=== PATIENT | female | born 1965 ===

== ENCOUNTER 2021-04-06 16:08 | Emergency (ER) | payer SELFPAY ==
[2021-04-06] MEDS ORDERED: ONDANSETRON 4 MG ODT TAB PO ONE (18:27)
--- NOTE | 2021-04-06 18:48 | Emergency Department Report ---
ED General Adult HPI - General Chief complaint: Back Pain/Injury Stated complaint: GUSTAFSON/VOMITING/ABD PAIN Time Seen by Provider: 04/06/21 18:17 Source: patient Mode of arrival: Ambulatory Limitations: No Limitations - History of Present Illness Initial comments: 56-year-old -[place]ian female with a past medical history of hypertension and asthma presents to the emergency room complaining of back pain and right arm pain x1 week. Patient also admits to nausea vomiting and a migraine headache. Patient reports that she has been having diarrhea as well. Patient endorsed to me that she recently moved here from [facility] and is now homeless as her living situation is denied panned out. Patient currently does not have a primary care provider here. Patient denies any hematuria but admits to increased urination increased frequency pelvic pressure. Patient states she has been taking Aleve for pain management. She is not sure what blood pressure medication she is takes. Onset/Timin -: week(s) Location: back, abdomen, upper extremity Radiation: back, distal Severity scale (0 -10): 9 Quality: stabbing, sharp Consistency: constant Improves with: none Worsens with: movement Associated Symptoms: headaches, nausea/vomiting. denies: cough, diaphoresis, fever/chills Treatments Prior to Arrival: none - Related Data Previous Rx's Medication Instructions Recorded Last Taken Type Naproxen 500 mg PO BID PRN 10 Days #20 04/06/21 Unknown Rx tablet Nitrofurantoin [place]/M-Cryst 100 mg PO Q12HR 10 Days #20 capsule 04/06/21 Unknown Rx [Macrobid CAP] amLODIPine 5 mg PO DAILY 30 Days #30 tab 04/06/21 Unknown Rx Allergies Allergy/AdvReac Type Severity Reaction Status Date / Time Penicillins Allergy Swelling Verified 04/06/21 16:14 ED Review of Systems ROS: Stated complaint: GUSTAFSON/VOMITING/ABD PAIN Other details as noted in HPI Comment: All other systems reviewed and negative ED Past Medical Hx - Past Medical History Previous Medical History?: Yes Hx Hypertension: Yes Hx Asthma: Yes - Surgical History Past Surgical History?: Yes Additional Surgical History: sinus surgery - Social History Smoking Status: Never Smoker Substance Use Type: None - Medications Home Medications: Home Medications Medication Instructions Recorded Confirmed Last Taken Type Naproxen 500 mg PO BID PRN 10 Days #20 04/06/21 Unknown Rx tablet Nitrofurantoin [place]/M-Cryst 100 mg PO Q12HR 10 Days #20 capsule 04/06/21 Unknown Rx [Macrobid CAP] amLODIPine 5 mg PO DAILY 30 Days #30 tab 04/06/21 Unknown Rx ED Physical Exam - General Limitations: No Limitations General appearance: alert, other (Tearful) - Head Head exam: Present: atraumatic, normocephalic - Eye Eye exam: Present: normal appearance - ENT ENT exam: Present: mucous membranes moist - Neck Neck exam: Present: normal inspection, full ROM - Respiratory Respiratory exam: Present: normal lung sounds bilaterally. Absent: chest wall tenderness - Cardiovascular Cardiovascular Exam: Present: regular rate - Neurological Exam Neurological exam: Present: alert, oriented X3, normal gait - Psychiatric Psychiatric exam: Present: normal affect, normal mood - Skin Skin exam: Present: warm, dry, intact, normal color. Absent: rash ED Course Vital Signs 04/06/21 16:13 Temperature 99.1 F Pulse Rate 92 H Respiratory 13 Rate Blood Pressure 175/110 O2 Sat by Pulse 100 Oximetry ED Medical Decision Making - Lab Data Result diagrams: 04/06/21 18:38 04/06/21 18:38 Laboratory Tests 04/06/21 04/06/21 04/06/21 18:38 18:38 18:51 WBC 7.8 RBC 5.58 H Hgb 17.6 H Hct 50.3 H MCV 90 MCH 32 MCHC 35 H RDW 13.3 Plt Count 279 Lymph % (Auto) 43.5 H [place] % (Auto) 5.4 Eos % (Auto) 0.6 Baso % (Auto) 0.3 Lymph # (Auto) 3.4 [place] # (Auto) 0.4 Eos # (Auto) 0.0 Baso # (Auto) 0.0 Seg Neutrophils % 50.2 Seg Neutrophils # 3.9 Sodium 140 Potassium 4.5 Chloride 98.3 Carbon Dioxide 27 Anion Gap 19 BUN 9 Creatinine 0.7 Estimated GFR > 60 BUN/Creatinine Ratio 13 Glucose 133 H Calcium 10.9 H Total Bilirubin 0.70 AST 22 ALT 25 Alkaline Phosphatase 74 Total Protein 8.6 H Albumin 5.2 H Albumin/Globulin Ratio 1.5 Urine Color Yellow Urine Turbidity Cloudy Urine pH 6.0 Ur Specific [place] 1.008 Urine Protein 30 mg/dl Urine Glucose (UA) Neg Urine Ketones Tr Urine Blood Lg Urine Nitrite Neg Urine Bilirubin Neg Urine Urobilinogen < 2.0 Ur Leukocyte Esterase Lg Urine WBC (Auto) 26.0 H Urine RBC (Auto) 37.0 U Epithel Cells (Auto) 25.0 H Urine Bacteria (Auto) 2+ Urine Mucus Few - Medical Decision Making 56-year-old -[place] female with a past medical history of hypertension and asthma presents to the emergency room complaining of back pain and right arm pain x1 week. Patient also admits to nausea vomiting and a migraine headache. Patient reports that she has been having diarrhea as well. Patient endorsed to me that she recently moved here from [facility] and is now homeless as her living situation is denied panned out. Patient currently does not have a primary care provider here. Patient denies any hematuria but admits to increased urination increased frequency pelvic pressure. Patient states she has been taking Aleve for pain management. She is not sure what blood pressure medication she is takes. CBC CMP urinalysis lipase has been ordered. Critical care attestation.: If time is entered above; I have spent that time in minutes in the direct care of this critically ill patient, excluding procedure time. ED Disposition Clinical Impression: UTI (urinary tract infection) Qualifiers: Hematuria presence: without hematuria HTN (hypertension) Qualifiers: Hypertension type: unspecified Qualified Code(s): I10 - Essential (primary) hypertension Disposition: TO HOME OR SELFCARE Is pt being admited?: No Does the pt Need Aspirin: No Condition: Stable Instructions: Urinary Tract Infection, Adult, [id number], Hypertension (ED) Additional Instructions: Urine shows that you have a urinary tract infection this is because of your back pain and abdominal pain and pelvic pain. Increase your fluids. Take your pain medication. Follow-up with a primary care provider. Take your blood pressure medicine. Prescriptions: amLODIPine 5 mg PO DAILY 30 Days #30 tab Nitrofurantoin [place]/M-Cryst [Macrobid CAP] 100 mg PO Q12HR 10 Days #20 capsule Naproxen 500 mg PO BID PRN 10 Days #20 tablet PRN Reason: Pain , Severe (7-10) Referrals: PRIMARY CARE, [Primary Care Provider] - 3-5 Days [facility] [Provider Group] - 3-5 Days
[2021-04-06 19:16] LABS: Basophils % (Auto) 0.3 % (0.0-1.8); Eosinophils % (Auto) 0.6 % (0.0-4.3); Hematocrit 50.3 % (30.3-42.9); Hemoglobin 17.6 gm/dl (10.1-14.3); Lymphocytes # (Auto) 3.4 K/mm3 (1.2-5.4); Lymphocytes % (Auto) 43.5 % (13.4-35.0); Mean Corpuscular HGB Conc 35 % (30-34); Mean Corpuscular Volume 90 fl (79-97); Monocytes # (Auto) 0.4 K/mm3 (0.0-0.8); Monocytes % (Auto) 5.4 % (0.0-7.3); Platelet Count 279 K/mm3 (140-440); Red Blood Count 5.58 M/mm3 (3.65-5.03); Red Cell Distribution Width 13.3 % (13.2-15.2)
[2021-04-06 19:25] LABS: Bacteria,Urine 2+ /HPF (Negative); Bilirubin,Urine NEG (Negative); Blood,Urine LG (Negative); Color,Urine Yellow (Yellow); Mucus,Urine FEW /HPF; Urobilinogen,Urine < 2.0 mg/dL (<2.0)
[2021-04-06 19:34] LABS: Alanine Aminotransferase 25 units/L (7-56); Albumin 5.2 g/dL (3.9-5); Blood Urea Nitrogen 9 mg/dL (7-17); Calcium 10.9 mg/dL (8.4-10.2); Hemolysis Index 12
[2021-04-06 19:35] LABS: BUN/Creatinine Ratio 13
[2021-04-06] MEDS ORDERED: cloNIDine 0.1 MG TAB PO ONE (20:35)
[2021-04-06 23:20] VITALS: BP 184/104
--- NOTE | 2021-04-09 14:25 | Electrocardiograph Report ---
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
== END 2021-04-06 21:05 | disposition home or self-care (01) ==
LOC: ED 16:08
DX: N39.0 Urinary tract infection, site not specified (principal); I10 Essential (primary) hypertension; M79.601 Pain in right arm; R11.2 Nausea with vomiting, unspecified; J45.909 Unspecified asthma, uncomplicated; Z98.890 Other specified postprocedural states; Z79.899 Other long term (current) drug therapy; Z88.0 Allergy status to penicillin
CPT/HCPCS: 36415; 80053; 81001; 85025; 87086; 93005; 99283; Q0162

== ENCOUNTER 2021-04-07 10:11 | Emergency (ER) | payer MEDICAID ==
--- NOTE | 2021-04-07 10:50 | Emergency Department Report ---
HPI - General Time Seen by Provider: 04/07/21 10:12 - HPI HPI: This is a 56-year-old -J[place] female who presents to the emergency department via EMS with complaint of nausea, vomiting, diarrhea, and body aches worse on the right side, over the past week. She also complains of some intermittent shortness of breath and mixed dry and productive cough. The patient was seen here last night for the nausea/vomiting and some body aches. At the time the patient was found to have some hypertension and labs showed a urinary tract infection. The patient was discharged home with amlodipine, Macrobid and NSAIDs. The patient recently moved here from [place] to take care of "my blind sister." Some triage information says that the patient is homeless but the patient says that she is staying with family. Apparently the patient says that her symptoms worsened overnight and that this morning she passed out. At the time of my examination she is awake, alert, oriented, AAO x3. She presents with elevated blood pressure. Initially, during triage, the patient was witnessed to have a oxygen saturation of 85% on room air and was placed on 2 L via nasal cannula. She denies any tobacco, alcohol or illicit drug use. She just has a past medical history of asthma and hypertension, as well as a history of anxiety. ED Past Medical Hx - Past Medical History Previous Medical History?: Yes Hx Hypertension: Yes Hx Asthma: Yes - Surgical History Additional Surgical History: sinus surgery - Social History Smoking Status: Never Smoker Substance Use Type: None - Medications Home Medications: Home Medications Medication Instructions Recorded Confirmed Last Taken Type Naproxen 500 mg PO BID PRN 10 Days #20 04/06/21 Unknown Rx tablet Nitrofurantoin [place]/M-Cryst 100 mg PO Q12HR 10 Days #20 capsule 04/06/21 Unknown Rx [Macrobid CAP] amLODIPine 5 mg PO DAILY 30 Days #30 tab 04/06/21 Unknown Rx Ondansetron [Zofran Odt] 4 mg PO Q8HR PRN #15 tab.rapdis 04/07/21 Unknown Rx ED Review of Systems ROS: Stated complaint: NAUSEA/VOMITING Other details as noted in HPI Comment: All other systems reviewed and negative Constitutional: denies: chills, fever Eyes: denies: eye pain, vision change ENT: denies: ear pain, throat pain Respiratory: cough, shortness of breath Cardiovascular: denies: chest pain, palpitations Gastrointestinal: nausea, vomiting, diarrhea. denies: abdominal pain Genitourinary: denies: urgency, dysuria Musculoskeletal: back pain, myalgia. denies: joint swelling Skin: denies: rash, lesions Neurological: denies: headache, numbness, paresthesias Physical Exam - Physical Exam Vital Signs: Vital Signs 04/07/21 10:15 Temperature 98.7 F Pulse Rate 88 Respiratory 16 Rate Blood Pressure 177/89 [Right] O2 Sat by Pulse 85 Oximetry Physical Exam: GENERAL: The patient is well-developed well-nourished. HENT: Normocephalic. Atraumatic. Patient has moist mucous membranes. EYES: Extraocular motions are intact. NECK: Supple. Trachea is midline. CHEST/LUNGS: Clear to auscultation. There is no respiratory distress noted. HEART/CARDIOVASCULAR: Regular. There is mild tachycardia. There is no murmur. ABDOMEN: Abdomen is soft. Mild generalized abdominal tenderness to palpation. No guarding. Patient has normal bowel sounds. There is no abdominal distention. SKIN: Skin is warm and dry. NEURO: The patient is awake, alert, and oriented. The patient is cooperative. The patient has no focal neurologic deficits. Normal speech. MUSCULOSKELETAL: There is no tenderness or deformity. There is no limitation range of motion. ED Course Vital Signs 04/07/21 10:15 Temperature 98.7 F Pulse Rate 88 Respiratory 16 Rate Blood Pressure 177/89 [Right] O2 Sat by Pulse 85 Oximetry - ABG Interpretation Ph: 7.485 PCO2: 30 PO2: 81 Bicarbonate: 22 ED Medical Decision Making - Lab Data Result diagrams: 04/07/21 10:53 04/07/21 10:53 Lab Results 04/07/21 04/07/21 04/07/21 Range/Units 10:53 10:53 10:53 WBC 10.6 (4.5-11.0) K/mm3 RBC 5.33 H (3.65-5.03) M/mm3 Hgb 17.3 H (10.1-14.3) gm/dl Hct 47.7 H (30.3-42.9) % MCV 90 (79-97) fl MCH 32 (28-32) pg MCHC 36 H (30-34) % RDW 13.1 L (13.2-15.2) % Plt Count 219 (140-440) K/mm3 Lymph % (Auto) 16.7 (13.4-35.0) % [place] % (Auto) 5.4 (0.0-7.3) % Eos % (Auto) 0.4 (0.0-4.3) % Baso % (Auto) 0.3 (0.0-1.8) % Lymph # (Auto) 1.8 (1.2-5.4) K/mm3 [place] # (Auto) 0.6 (0.0-0.8) K/mm3 Eos # (Auto) 0.0 (0.0-0.4) K/mm3 Baso # (Auto) 0.0 (0.0-0.1) K/mm3 Seg Neutrophils % 77.2 H (40.0-70.0) % Seg Neutrophils # 8.2 H (1.8-7.7) K/mm3 D-Dimer (0-234) ng/mlDDU ABG pH (7.320-7.450) POC ABG pCO2 (32.0-48.0) mmHg POC ABG pO2 (83-108) mmHg POC ABG HCO3 POC ABG Base Excess ABG Hemoglobin (12.0-17.5) ABG Oxyhemoglobin (94-98) ABG Methemoglobin (0.0-1.5) ABG Sodium (136.0-145.0) mmol/L ABG Potassium (3.40-4.50) mmol/L ABG Chloride (98-107) mmol/L ABG Glucose (65-95) mg/dL ABG Lactate (0.18-30.0) Carboxyhemoglobin (0.5-1.5) FiO2 % Sodium 138 (137-145) mmol/L Potassium 3.3 L D (3.6-5.0) mmol/L Chloride 100.2 (98-107) mmol/L Carbon Dioxide 24 (22-30) mmol/L Anion Gap 17 mmol/L BUN 13 (7-17) mg/dL Creatinine 0.9 (0.6-1.2) mg/dL Estimated GFR > 60 ml/min BUN/Creatinine Ratio 14 % Glucose 154 H (65-100) mg/dL Calcium 10.9 H (8.4-10.2) mg/dL Total Bilirubin 0.80 (0.1-1.2) mg/dL AST 20 (5-40) units/L ALT 21 (7-56) units/L Alkaline Phosphatase 64 (35-129) units/L Troponin T < 0.010 (0.00-0.029) ng/mL NT-Pro-B Natriuret Pep (0-900) pg/mL Total Protein 7.8 (6.3-8.2) g/dL Albumin 4.5 (3.9-5) g/dL Albumin/Globulin Ratio 1.4 % Lipase 22 (13-60) units/L Arterial Blood Glucose (65-95) mg/dL Plasma/Serum Alcohol < 0.01 (0-0.07) % 04/07/21 04/07/21 04/07/21 Range/Units 10:53 10:53 12:25 WBC (4.5-11.0) K/mm3 RBC (3.65-5.03) M/mm3 Hgb (10.1-14.3) gm/dl Hct (30.3-42.9) % MCV (79-97) fl MCH (28-32) pg MCHC (30-34) % RDW (13.2-15.2) % Plt Count (140-440) K/mm3 Lymph % (Auto) (13.4-35.0) % [place] % (Auto) (0.0-7.3) % Eos % (Auto) (0.0-4.3) % Baso % (Auto) (0.0-1.8) % Lymph # (Auto) (1.2-5.4) K/mm3 [place] # (Auto) (0.0-0.8) K/mm3 Eos # (Auto) (0.0-0.4) K/mm3 Baso # (Auto) (0.0-0.1) K/mm3 Seg Neutrophils % (40.0-70.0) % Seg Neutrophils # (1.8-7.7) K/mm3 D-Dimer < 135 (0-234) ng/mlDDU ABG pH 7.485 H (7.320-7.450) POC ABG pCO2 30.0 L (32.0-48.0) mmHg POC ABG pO2 81.3 L (83-108) mmHg POC ABG HCO3 22.1 POC ABG Base Excess 0.1 ABG Hemoglobin 18.2 H (12.0-17.5) ABG Oxyhemoglobin 95.9 (94-98) ABG Methemoglobin 0.2 (0.0-1.5) ABG Sodium 140.5 (136.0-145.0) mmol/L ABG Potassium 3.6 (3.40-4.50) mmol/L ABG Chloride 102.0 (98-107) mmol/L ABG Glucose 116 H (65-95) mg/dL ABG Lactate 0.84 (0.18-30.0) Carboxyhemoglobin 0.1 L (0.5-1.5) FiO2 % 21.0 Sodium (137-145) mmol/L Potassium (3.6-5.0) mmol/L Chloride (98-107) mmol/L Carbon Dioxide (22-30) mmol/L Anion Gap mmol/L BUN (7-17) mg/dL Creatinine (0.6-1.2) mg/dL Estimated GFR ml/min BUN/Creatinine Ratio % Glucose (65-100) mg/dL Calcium (8.4-10.2) mg/dL Total Bilirubin (0.1-1.2) mg/dL AST (5-40) units/L ALT (7-56) units/L Alkaline Phosphatase (35-129) units/L Troponin T (0.00-0.029) ng/mL NT-Pro-B Natriuret Pep 57.18 (0-900) pg/mL Total Protein (6.3-8.2) g/dL Albumin (3.9-5) g/dL Albumin/Globulin Ratio % Lipase (13-60) units/L Arterial Blood Glucose 116 H (65-95) mg/dL Plasma/Serum Alcohol (0-0.07) % - EKG Data -: EKG Interpreted by Me EKG shows normal: sinus rhythm (PVCs), axis, intervals, QRS complexes (LVH), ST- T waves Rate: tachycardia (114 bpm) - EKG Data When compared to previous EKG there are: previous EKG unavailable Interpretation: other (Sinus tachycardia 114 bpm, PVCs, biatrial enlargement, LVH. No ST elevation AK) - Radiology Data Radiology results: image reviewed interpreted by me: Chest x-ray does not show any acute process. There are no pleural effusions, obvious pneumonia and there is no pneumothorax. No widened mediastinum. - Medical Decision Making This patient presents to the emergency department with a complaint of nausea, vomiting, diarrhea, body aches and intermittent shortness of breath and cough. On examination the patient does not appear in any respiratory or acute distress. There is some mild tachycardia but the patient also appears slightly anxious. Chest x-ray does not show any pneumonia, pleural effusions, pneumothorax, widened mediastinum, or any other acute process. Patient's labs have been mostly unremarkable except for some mild hypokalemia that was replaced with potassium chloride. She was given some IV Zofran, a dose of hydralazine for her hypertension, and a small dose of Ativan as she appears anxious. Later, when the blood pressure came down to a more reasonable level, the patient was given a small amount of IV fluid as she felt that would help most with her stomach "burning." We also tried a GI cocktail. Between the GI c ocktail and the IV fluid, the patient says she is feeling improved. There is been no vomiting while in the emergency department and the patient is able to pass an oral challenge. Initially, during triage, the patient appeared to have some hypoxia with a oxygen saturation of 85%. However the supplemental oxygen was almost immediately removed and the patient remained in the high 90s and did not have any further desaturation. An ABG was performed that did not show any hypoxemia. She was reevaluated multiple times over multiple hours and says she is feeling greatly improved and has remained stable throughout her ED course. She appears safe for discharge home at this time. She has prescriptions from last night including amlodipine, naproxen and Macrobid. I have given her a prescription for Zofran, in case her nausea/vomiting returns. She has been instructed to follow-up with primary care and to return to the emergency department with any worsening of her symptoms or with any acute distress. Critical Care Time: No Critical care attestation.: If time is entered above; I have spent that time in minutes in the direct care of this critically ill patient, excluding procedure time. ED Disposition Clinical Impression: Viral syndrome HTN (hypertension) Qualifiers: Hypertension type: essential hypertension Qualified Code(s): I10 - Essential (primary) hypertension Disposition: TO HOME OR SELFCARE Is pt being admited?: No Condition: Stable Instructions: Viral Illness, Adult, Hypertension, Adult, Hypertension (ED) Additional Instructions: Please follow-up with a primary care physician in the next few days. I have given you a referral for a local primary care physician, Dr. Cabezas, and a primary care clinic, [facility]. Try to stay away from foods that are high in salt and caffeinated products. Please start the amlodipine/Norvasc that you were prescribed last night. Keep a blood pressure log. You were also prescribed Macrobid for a urinary tract infection that was found last night. Please take this medication as prescribed. Return to the emergency department with any worsening of your symptoms, new or concerning symptoms not addressed during this current emergency department visit, or with any acute distress. Prescriptions: Ondansetron [Zofran Odt] 4 mg PO Q8HR PRN #15 tab.rapdis PRN Reason: Nausea Referrals: PRIMARY CAREMD [Primary Care Provider] - 2-3 Days KENRICK CABEZAS MD [Staff Physician] - 2-3 Days [facility] [Provider Group] - 2-3 Days Time of Disposition: 14:01
[2021-04-07] MEDS ORDERED: LORazepam 2 MG/ML VIAL IV ONE (10:51)
[2021-04-07] MEDS ORDERED: ONDANSETRON 4 MG/2 ML INJ IV ONE (11:02)
[2021-04-07] MEDS ORDERED: hydrALAZINE 20 MG/1 ML INJ IV ONE (11:02)
[2021-04-07 11:26] LABS: Basophils % (Auto) 0.3 % (0.0-1.8); Eosinophils % (Auto) 0.4 % (0.0-4.3); Lymphocytes # (Auto) 1.8 K/mm3 (1.2-5.4); Lymphocytes % (Auto) 16.7 % (13.4-35.0); Mean Corpuscular HGB Conc 36 % (30-34); Mean Corpuscular Volume 90 fl (79-97); Monocytes # (Auto) 0.6 K/mm3 (0.0-0.8); Monocytes % (Auto) 5.4 % (0.0-7.3); Platelet Count 219 K/mm3 (140-440); Red Blood Count 5.33 M/mm3 (3.65-5.03); Red Cell Distribution Width 13.1 % (13.2-15.2)
[2021-04-07 11:29] LABS: Hematocrit 47.7 % (30.3-42.9); Hemoglobin 17.3 gm/dl (10.1-14.3)
[2021-04-07 11:36] LABS: Alanine Aminotransferase 21 units/L (7-56); Albumin 4.5 g/dL (3.9-5); BUN/Creatinine Ratio 14; Blood Urea Nitrogen 13 mg/dL (7-17); Calcium 10.9 mg/dL (8.4-10.2); Hemolysis Index 13
[2021-04-07] MEDS ORDERED: LIDOCAINE VISCOUS 2% 15 ML ORAL LIQD PO ONE (11:51)
[2021-04-07] MEDS ORDERED: ALUM-MAG HYDROXIDE-SIMETHICONE 200-200-20MG/5ML ORAL LIQD 30 ML PO ONE (11:51)
--- NOTE | 2021-04-07 11:53 | XRay Report ---
CHEST 1 VIEW 04/07/2021 10:45 AM INDICATION / CLINICAL INFORMATION: SOB. COMPARISON: None available. FINDINGS: SUPPORT DEVICES: None. HEART / MEDIASTINUM: The heart size and pulmonary vasculature are normal. The aorta is normal in marie susy. LUNGS / PLEURA: No significant pulmonary or pleural abnormality. No pneumothorax. ADDITIONAL FINDINGS: No significant additional findings. IMPRESSION: No acute findings. Signer Name: Ernie Hurst MD Signed: 04/07/2021 11:49 AM Workstation Name: [id number]
[2021-04-07] MEDS ORDERED: POTASSIUM CHLORIDE ER 10 MEQ TAB PO ONE (12:39)
[2021-04-07] MEDS ORDERED: SODIUM CHLORIDE 0.9% 500 ML 500 ML IV ONE (12:58)
[2021-04-07 14:16] VITALS: BP 145/79
--- NOTE | 2021-04-08 11:15 | Electrocardiograph Report ---
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
== END 2021-04-07 14:39 | disposition home or self-care (01) ==
LOC: ED 10:14
DX: B34.9 Viral infection, unspecified (principal); I10 Essential (primary) hypertension; J45.909 Unspecified asthma, uncomplicated; Z98.890 Other specified postprocedural states; Z79.899 Other long term (current) drug therapy; Z88.0 Allergy status to penicillin
CPT/HCPCS: 36415; 71045; 80053; 82805; 83690; 83880; 84484; 85025; 85379; 93005; 96374; 96375; 99284; J0360; J2060; J2405; J7040; 80320; G0480

== ENCOUNTER 2021-05-22 15:28 | Emergency (ER) | payer SELFPAY ==
[2021-05-22 16:18] VITALS: BP 145/80
--- NOTE | 2021-05-22 20:27 | XRay Report ---
RIGHT SHOULDER 3 VIEW(S) INDICATION / CLINICAL INFORMATION: Pain - fall COMPARISON: None available. FINDINGS: BONES / JOINT(S): No acute fracture or subluxation. Mild degenerative arthrosis right AC joint. SOFT TISSUES: No significant abnormality. ADDITIONAL FINDINGS: None. Signer Name: Crisotbal Montiel MD Signed: 05/22/2021 8:23 PM Workstation Name: [id number]
--- NOTE | 2021-05-22 20:27 | XRay Report ---
RIGHT HIP 2 VIEW(S) INDICATION / CLINICAL INFORMATION: Pain - fall COMPARISON: None available. FINDINGS: BONES / JOINT(S): No acute fracture or subluxation. No significant arthritis. SOFT TISSUES: No significant abnormality. ADDITIONAL FINDINGS: Anterior lumbar fusion hardware L5-S1 level Signer Name: Cristobal Montiel MD Signed: 05/22/2021 8:22 PM Workstation Name: [id number]
--- NOTE | 2021-05-22 20:34 | Emergency Department Report ---
ED Fall HPI - General Chief Complaint: Fall Stated Complaint: RT ARM PAINS RT LEG PAINS Source: patient Mode of arrival: Ambulatory - History of Present Illness Initial Comments: Patient is a 56-year-old -Mexican female with a history of hypertension and asthma who presents to the ED with complaint of acute onset persistent severe right shoulder and hip pain after she slipped and fell at home 3 weeks ago. Patient states that the pain in her right shoulder and right hip is worse with any active range of motion, and that she is unable perform any active range of motion of the right shoulder because of severe pain. Patient states that the pain radiates to the distal right arm and distal right leg since the injury occurred 3 weeks ago. Patient denies headache, dizziness, syncope, chest pain, shortness of breath, nausea and vomiting, abdominal pain, head or neck injuries, neck pain, loss of consciousness, seizures, numbness and tingling or weakness of upper and lower extremities bilaterally or change in vision and head injury. MD Complaint: fall, other (Right shoulder pain; right hip pain) -: Sudden, week(s) (3) Fall From: standing When Fall Occurred: other (3) Fall Witnessed: yes, by family Place Fall Occurred: home Loss of Consciousness: none Prolonged Down Time?: no Symptoms Prior to Fall: none Location: other (right shoulder and hip pain) Location - Extremities: Right: Shoulder (pain), Thigh (right hip) Severity: severe Severity scale (0 -10): 7 Quality: sharp, aching Context: tripped/slipped Associated Symptoms: denies. denies: headache, neck pain, numbness, weakness, chest paint, shortness of breath, abdominal pain, hematuria, unable to walk, lightheaded, vertigo, confusion, other - Related Data Previous Rx's Medication Instructions Recorded Last Taken Type Nitrofurantoin [place]/M-Cryst 100 mg PO Q12HR 10 Days #20 capsule 04/06/21 Unknown Rx [Macrobid CAP] amLODIPine 5 mg PO DAILY 30 Days #30 tab 04/06/21 Unknown Rx Ondansetron [Zofran Odt] 4 mg PO Q8HR PRN #15 tab.rapdis 04/07/21 Unknown Rx Cyclobenzaprine [Flexeril] 10 mg PO TID PRN #15 tablet 05/22/21 Unknown Rx Naproxen 500 mg PO BID PRN 10 Days #30 08/12/21 Unknown Rx tablet Allergies Allergy/AdvReac Type Severity Reaction Status Date / Time Penicillins Allergy Swelling Verified 05/22/21 16:14 ED Review of Systems ROS: Stated complaint: RT ARM PAINS RT LEG PAINS Other details as noted in HPI Constitutional: denies: chills, fever Eyes: denies: eye pain, eye discharge, vision change ENT: denies: ear pain, throat pain Respiratory: denies: cough, shortness of breath, wheezing Cardiovascular: denies: chest pain, palpitations Endocrine: no symptoms reported Gastrointestinal: denies: abdominal pain, nausea, diarrhea Genitourinary: denies: urgency, dysuria, discharge Musculoskeletal: arthralgia (Right shoulder and right hip pain). denies: back pain, joint swelling Skin: denies: rash, lesions Neurological: denies: headache, weakness, paresthesias Psychiatric: denies: anxiety, depression Hematological/Lymphatic: denies: easy bleeding, easy bruising ED Past Medical Hx - Past Medical History Hx Hypertension: Yes Hx Asthma: Yes - Surgical History Additional Surgical History: sinus surgery - Social History Smoking Status: Never Smoker Substance Use Type: None - Medications Home Medications: Home Medications Medication Instructions Recorded Confirmed Last Taken Type Nitrofurantoin [place]/M-Cryst 100 mg PO Q12HR 10 Days #20 capsule 04/06/21 Unknown Rx [Macrobid CAP] amLODIPine 5 mg PO DAILY 30 Days #30 tab 04/06/21 Unknown Rx Ondansetron [Zofran Odt] 4 mg PO Q8HR PRN #15 tab.rapdis 04/07/21 Unknown Rx Cyclobenzaprine [Flexeril] 10 mg PO TID PRN #15 tablet 05/22/21 Unknown Rx Naproxen 500 mg PO BID PRN 10 Days #30 05/22/21 Unknown Rx tablet ED Physical Exam - General Limitations: No Limitations General appearance: alert, in no apparent distress - Head Head exam: Present: atraumatic, normocephalic, normal inspection - Eye Eye exam: Present: normal appearance, PERRL, EOMI Pupils: Present: normal accommodation - ENT ENT exam: Present: normal exam, normal orophraynx, mucous membranes moist, TM's normal bilaterally, normal external ear exam - Neck Neck exam: Present: normal inspection, full ROM - Respiratory Respiratory exam: Present: normal lung sounds bilaterally. Absent: respiratory distress, wheezes, rales, rhonchi, chest wall tenderness, accessory muscle use - Cardiovascular Cardiovascular Exam: Present: regular rate, normal rhythm, normal heart sounds. Absent: systolic murmur, diastolic murmur, rubs, gallop - GI/Abdominal GI/Abdominal exam: Present: soft, normal bowel sounds. Absent: tenderness, guarding, hyperactive bowel sounds, hypoactive bowel sounds, organomegaly, mass - Extremities Exam Extremities exam: Present: normal inspection, tenderness (Palpable right shoulder and right hip tenderness) - Back Exam Back exam: Present: normal inspection, full ROM, tenderness. Absent: CVA tenderness (R), CVA tenderness (L), muscle spasm, paraspinal tenderness, vertebral tenderness - Neurological Exam Neurological exam: Present: alert, oriented X3, CN II-XII intact, normal gait, reflexes normal - Psychiatric Psychiatric exam: Present: normal affect, normal mood - Skin Skin exam: Present: warm, dry, intact, normal color. Absent: rash ED Course Vital Signs 05/22/21 16:17 Temperature 98.9 F Pulse Rate 84 Respiratory 18 Rate Blood Pressure 145/80 O2 Sat by Pulse 98 Oximetry ED Medical Decision Making - Radiology Data Radiology results: report reviewed, image reviewed [facility] [address] [place] [address] XRay Report Signed Patient: SRINATH FARFAN MR#: [id number] 9 : 1965 Acct:[id number] Age/Sex: 56 / F ADM Date: 05/22/21 Loc: ED Attending Dr: Ordering Physician: SHIMON MORA Date of Service: 05/22/21 Procedure(s): XR hip 2-3V RT Accession Number(s): [id number] cc: SHIMON MORA Fluoro Time In Minutes: RIGHT HIP 2 VIEW(S) INDICATION / CLINICAL INFORMATION: Pain - fall COMPARISON: None available. FINDINGS: BONES / JOINT(S): No acute fracture or subluxation. No significant arthritis. SOFT TISSUES: No significant abnormality. ADDITIONAL FINDINGS: Anterior lumbar fusion hardware L5-S1 level Signer Name: Cristobal Montiel MD Signed: 05/22/2021 8:22 PM Workstation Name: [id number] Transcribed By: KORI Dictated By: Cristobal Montiel MD Electronically Authenticated By: Cristobal Montiel MD Signed Date/Time: 05/22/212021 DD/ 21 TD/TT: [facility] [address] [place] [address] XRay Report Signed Patient: SRINATH FARFAN MR#: [id number] 9 : 1965 Acct:[id number] Age/Sex: 56 / F ADM Date: 05/22/21 Loc: ED Attending Dr: Ordering Physician: SHIMON MORA Date of Service: 05/22/21 Procedure(s): XR shoulder 2+V RT Accession Number(s): [id number] cc: SHIMON MORA Fluoro Time In Minutes: RIGHT SHOULDER 3 VIEW(S) INDICATION / CLINICAL INFORMATION: Pain - fall COMPARISON: None available. FINDINGS: BONES / JOINT(S): No acute fracture or subluxation. Mild degenerative arthrosis right AC joint. SOFT TISSUES: No significant abnormality. ADDITIONAL FINDINGS: None. Signer Name: Cristobal Montiel MD Signed: 05/22/2021 8:23 PM Workstation Name: [id number] Transcribed By: TL Dictated By: Cristobal Montiel MD Electronically Authenticated By: Cristobal Montiel MD Signed Date/Time: 05/22/212022 DD/ 21 TD/TT: - Medical Decision Making This is a 56-year-old -Mexican female with a history of hypertension and asthma who presents to the ED with complaint of acute onset persistent severe right shoulder and hip pain after she slipped and fell at home 3 weeks ago. Patient states that the pain in her right shoulder and right hip is worse with any active range of motion, and that she is unable perform any active range of motion of the right shoulder because of severe pain. Patient states that the pain radiates to the distal right arm and distal right leg since the injury occurred 3 weeks ago. In the ED, patient is alert and oriented x3 and is not in any distress. Right shoulder x-ray showed no acute fractures or subluxation. The right hip x-ray also showed no acute fractures or subluxations. Patient symptoms are likely musculoskeletal injuries following the fall 3 weeks ago. Patient is however ambulatory in the ED with no difficulties and is hemodynamically stable and neurovascularly intact. Patient was therefore discharged home on pain medications and muscle relaxants and advised to follow- up with her primary care physician in 5 to 7 days for reevaluation or return to the ED immediately if symptoms get worse. - Differential Diagnosis shoulder sprain; hip contusion; muscle strain; muscle spasm Critical care attestation.: If time is entered above; I have spent that time in minutes in the direct care of this critically ill patient, excluding procedure time. ED Disposition Clinical Impression: Sprain of right shoulder girdle Qualifiers: Encounter type: initial encounter Qualified Code(s): S43.91XA - Sprain of unspecified parts of right shoulder girdle, initial encounter Sprain of right hip Qualifiers: Encounter type: initial encounter Qualified Code(s): S73.101A - Unspecified sprain of right hip, initial encounter Contusion of right hip and thigh Qualifiers: Encounter type: initial encounter Qualified Code(s): S70.01XA - Contusion of right hip, initial encounter; S70.11XA - Contusion of right thigh, initial encounter Contusion of right lower arm Qualifiers: Encounter type: initial encounter Qualified Code(s): S50.11XA - Contusion of right forearm, initial encounter Disposition: 01 HOME / SELF CARE / HOMELESS Is pt being admited?: No Does the pt Need Aspirin: No Condition: Stable Instructions: Hip Sprain, Contusion, [id number], Shoulder Sprain, Muscle Strain, [id number] Additional Instructions: The right shoulder x-ray showed no acute fractures or subluxations. Right hip x-ray showed no acute fractures and subluxations. Your symptoms are likely musculoskeletal injuries from recent fall. Therefore take medication with food, drink plenty of fluids and follow-up with your primary care physician in 7 to 10 days for reevaluation. Return to the ED immediately if symptoms get worse. Prescriptions: Cyclobenzaprine [Flexeril] 10 mg PO TID PRN #15 tablet PRN Reason: Muscle Spasm Naproxen 500 mg PO BID PRN 10 Days #30 tablet PRN Reason: Pain , Severe (7-10) Referrals: [facility] [Provider Group] - 7-10 days Forms: Work/School Release Form(ED) Time of Disposition: 20:35 Print Language: GUYANESE
== END 2021-05-23 01:26 | disposition home or self-care (01) ==
LOC: ED 15:28
DX: S43.91XA Sprain of unspecified parts of right shoulder girdle, initial encounter (principal); S73.101A Unspecified sprain of right hip, initial encounter; S70.01XA Contusion of right hip, initial encounter; S70.11XA Contusion of right thigh, initial encounter; S50.11XA Contusion of right forearm, initial encounter; I10 Essential (primary) hypertension; J45.909 Unspecified asthma, uncomplicated; Z88.0 Allergy status to penicillin; Z79.899 Other long term (current) drug therapy; Z98.890 Other specified postprocedural states; W01.0XXA Fall on same level from slipping, tripping and stumbling without subsequent striking against object, initial encounter; Y93.89 Activity, other specified; Y92.009 Unspecified place in unspecified non-institutional (private) residence as the place of occurrence of the external cause; Y99.8 Other external cause status